=== PATIENT | male | born 1930 | race Caucasian/White ===

== ENCOUNTER → 2016-05-19 | Outpatient (CLI) | payer MEDICARE, OTHER | LOC: GMAB 14:09 | PROVIDERS: ATTEND Family Medicine | DX: I50.22 Chronic systolic (congestive) heart failure (principal); N18.4 Chronic kidney disease, stage 4 (severe); E03.9 Hypothyroidism, unspecified ==

== ENCOUNTER → 2016-05-26 | Outpatient (CLI) | payer MEDICARE, OTHER | LOC: GMAB 17:25 | PROVIDERS: ATTEND Family Medicine | DX: E03.9 Hypothyroidism, unspecified (principal); Z12.5 Encounter for screening for malignant neoplasm of prostate | CPT/HCPCS: 84439; 84443; 84481; G0103 ==

== ENCOUNTER → 2016-06-16 | Outpatient (CLI) | payer MEDICARE, OTHER | LOC: GMAB 15:52 | PROVIDERS: ATTEND Family Medicine | DX: N18.4 Chronic kidney disease, stage 4 (severe) (principal) ==

== ENCOUNTER → 2016-10-13 | Outpatient (CLI) | payer MEDICARE, OTHER | END | disposition home or self-care (01) | LOC: GMAB 14:55 | PROVIDERS: ATTEND Family Medicine | DX: I50.22 Chronic systolic (congestive) heart failure (principal); N18.4 Chronic kidney disease, stage 4 (severe); E03.9 Hypothyroidism, unspecified ==

== ENCOUNTER → 2017-01-12 | Outpatient (CLI) | payer MEDICARE, OTHER | END | disposition home or self-care (01) | LOC: GMAB 14:30 | PROVIDERS: ATTEND Family Medicine | DX: N18.4 Chronic kidney disease, stage 4 (severe) (principal); E03.9 Hypothyroidism, unspecified ==

== ENCOUNTER → 2017-04-13 | Outpatient (CLI) | payer MEDICARE, OTHER | END | disposition home or self-care (01) | LOC: GMAB 14:11 | PROVIDERS: ATTEND Family Medicine | DX: N18.4 Chronic kidney disease, stage 4 (severe) (principal); E03.9 Hypothyroidism, unspecified ==

== ENCOUNTER → 2017-06-29 | Outpatient (CLI) | payer MEDICARE, OTHER | LOC: GMAB 11:54 | PROVIDERS: ATTEND Family Medicine | DX: E03.9 Hypothyroidism, unspecified (principal); Z12.5 Encounter for screening for malignant neoplasm of prostate | CPT/HCPCS: 84439; 84443; 84481; G0103 ==

== ENCOUNTER → 2017-07-02 | Outpatient (CLI) | payer MEDICARE, OTHER ==
--- NOTE | 2017-07-05 08:04 | US ---
EXAM DESCRIPTION: Carotid Duplex CLINICAL HISTORY: 87 years, Male, BRUIT OCCLUSION AND STENOSIS OF CAROTID ART COMPARISON: August 01, 2015 FINDINGS: Indirect estimation of percent stenosis is inferred from velocity parameters and cross referenced to published or self-generated correlations among velocity parameters. Peak systolic velocity right common carotid artery 93 centimeters/second. Peak systolic velocity right internal carotid artery 106 centimeters/second. Right ICA to CCA ratio 1.2. Antegrade flow in the right vertebral artery. Grayscale images show minimal plaque in the right carotid bifurcation. No velocities were obtained in the left common carotid artery, and the left CCA appears occluded or severely stenotic. Flow is identified in the left ICA with peak systolic velocity 80 centimeters/second, likely by way of retrograde flow from the left external carotid artery. Left ICA to CCA ratio undefined.. [Antegrade] flow in the left vertebral artery. Grayscale images show a moderate amount of plaque in the left carotid bifurcation. IMPRESSION: Mild (less than 50%) right-sided carotid artery stenosis. 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 Flow in the left ICA is noted, probably by way of retrograde flow in the left ECA as detailed above. No identifiable left-sided internal carotid artery stenosis. Electronically signed by: Dawson Desai MD 07/05/2017 8:03 AM [employer]
== END ==
LOC: US 11:00
PROVIDERS: ATTEND Family Medicine
DX: I65.23 Occlusion and stenosis of bilateral carotid arteries (principal)

== ENCOUNTER → 2017-08-10 | Outpatient (CLI) | payer MEDICARE, OTHER | LOC: GMAB 14:25 | PROVIDERS: ATTEND Family Medicine | DX: N18.4 Chronic kidney disease, stage 4 (severe) (principal); D63.1 Anemia in chronic kidney disease; D50.9 Iron deficiency anemia, unspecified ==

== ENCOUNTER → 2017-10-13 | Outpatient (CLI) | payer MEDICARE, OTHER | LOC: GMAB 14:28 | PROVIDERS: ATTEND Family Medicine | DX: N18.4 Chronic kidney disease, stage 4 (severe) (principal); D63.1 Anemia in chronic kidney disease; D50.9 Iron deficiency anemia, unspecified ==

== ENCOUNTER → 2018-01-11 | Outpatient (CLI) | payer MEDICARE, OTHER | LOC: GMAE 14:16 | PROVIDERS: ATTEND Family Medicine | DX: N18.4 Chronic kidney disease, stage 4 (severe) (principal); D63.1 Anemia in chronic kidney disease; D50.9 Iron deficiency anemia, unspecified ==

== ENCOUNTER → 2018-04-25 | Outpatient (CLI) | payer MEDICARE, OTHER | LOC: GMAE 14:30 | PROVIDERS: ATTEND Family Medicine | DX: N18.4 Chronic kidney disease, stage 4 (severe) (principal); D63.1 Anemia in chronic kidney disease; D50.9 Iron deficiency anemia, unspecified ==

== ENCOUNTER → 2018-05-18 | Outpatient (CLI) | payer MEDICARE, OTHER | LOC: GMAE 16:57 | PROVIDERS: ATTEND Family Medicine | DX: N18.4 Chronic kidney disease, stage 4 (severe) (principal) ==

== ENCOUNTER → 2018-07-28 | Outpatient (CLI) | payer MEDICARE, OTHER | LOC: GMAE 14:51 | PROVIDERS: ATTEND Family Medicine | DX: E03.9 Hypothyroidism, unspecified (principal) ==

== ENCOUNTER → 2018-08-03 | Outpatient (CLI) | payer MEDICARE, OTHER ==
--- NOTE | 2018-08-03 15:13 | US ---
EXAM DESCRIPTION: Carotid Duplex CLINICAL HISTORY: OCCLUSION AND STENOSIS OF BILATERAL CAROTID ARTERIES COMPARISON: Previous study July 02, 2017 TECHNIQUE: Carotid Doppler ultrasound FINDINGS: Right Submitted images show tortuous right CCA with patchy calcified plaque and mild calcified plaque at the right carotid bifurcation. The following flow velocities were obtained: Common carotid artery peak systolic flow velocity measures 93 centimeters per second. Internal carotid artery peak systolic flow velocity measures 106 centimeters per second. External carotid artery peak systolic flow velocity measures 112 centimeters per second. Flow in the right vertebral artery is antegrade. The right internal carotid to common carotid peak systolic flow velocity ratio equals 1.2 which is normal. Left Submitted images show occluded left common carotid artery as on previous study with occlusion of the left carotid bulb. There is flow in the left external carotid artery and in the internal carotid artery as on previous study. The following flow velocities were obtained: Common carotid artery is occluded with no flow. Internal carotid artery peak systolic flow velocity measures 79 centimeters per second. External carotid artery peak systolic flow velocity measures 89 centimeters per second. Flow in the left vertebral artery is antegrade. 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 Electronically signed by: Jose Juan Owens MD 08/03/2018 3:10 PM CDT
== END ==
LOC: US 11:16
PROVIDERS: ATTEND Family Medicine
DX: I65.23 Occlusion and stenosis of bilateral carotid arteries (principal)

== ENCOUNTER → 2018-09-01 | Outpatient (CLI) | payer MEDICARE, OTHER | LOC: GMAE 15:10 | PROVIDERS: ATTEND Family Medicine | DX: N18.4 Chronic kidney disease, stage 4 (severe) (principal) ==

== ENCOUNTER → 2018-12-07 | Outpatient (CLI) | payer MEDICARE, OTHER | LOC: GMAE 15:24 | PROVIDERS: ATTEND Family Medicine | DX: N18.4 Chronic kidney disease, stage 4 (severe) (principal) ==

== ENCOUNTER → 2019-02-02 | Outpatient (CLI) | payer MEDICARE, OTHER | LOC: GMAE 14:21 | PROVIDERS: ATTEND Family Medicine | DX: E03.9 Hypothyroidism, unspecified (principal); N18.3 Chronic kidney disease, stage 3 (moderate) ==

== ENCOUNTER → 2019-04-06 | Outpatient (CLI) | payer MEDICARE, OTHER | LOC: GMAE 14:00 | PROVIDERS: ATTEND Family Medicine | DX: E83.42 Hypomagnesemia (principal); E21.1 Secondary hyperparathyroidism, not elsewhere classified; N18.4 Chronic kidney disease, stage 4 (severe) ==

== ENCOUNTER → 2019-08-08 | Outpatient (CLI) | payer MEDICARE, OTHER | LOC: GMAE 10:34 | PROVIDERS: ATTEND Family Medicine | DX: E03.9 Hypothyroidism, unspecified (principal); I10 Essential (primary) hypertension ==

== ENCOUNTER → 2019-11-01 | Outpatient (CLI) | payer MEDICARE, OTHER | LOC: GMAE 14:52 | PROVIDERS: ATTEND Family Medicine | DX: E83.42 Hypomagnesemia (principal); N18.9 Chronic kidney disease, unspecified ==

== ENCOUNTER → 2020-05-27 | Outpatient (CLI) | payer MEDICARE, OTHER | LOC: GMAE 15:04 | PROVIDERS: ATTEND Family Medicine | DX: N18.30 Chronic kidney disease, stage 3 unspecified (principal) ==